=== PATIENT | female | born 1975 | race Caucasian/White ===

== ENCOUNTER → 2017-07-31 | Outpatient (CLI) | payer BC ==
--- NOTE | 2017-08-01 11:15 | WOMENS IMAGING REPORT ---
EXAM DESCRIPTION: 3D SCREENING MAMMO BILAT COMPLETED DATE/TIME: 07/31/2017 7:37 am REASON FOR STUDY: SCREENING MAMMO Z12.31 ENCNTR SCREEN MAMMOGRAM FOR MALIGNANT NEOPLASM OF MARY COMPARISON: None. TECHNIQUE: Standard craniocaudal and mediolateral oblique views of each breast recorded using digita l acquisition and breast tomosynthesis. LIMITATIONS: None. FINDINGS: No masses, calcifications or architectural distortion. No areas of suspicion. Read with the assistance of CAD. .[facility] - R2 Cenova Version 1.3 .[facility] Imaging - R2 Cenova Version 1.3 .[facility] - R2 Cenova Version 2.4 .[facility] [place] - R2 Cenova Version 2.4 .[facility] - R2 Photogrammetric Stereo Compiler Version 9.2 IMPRESSION: NORMAL MAMMOGRAM. BIRADS 1. BREAST DENSITY: c. The breasts are heterogeneously dense, which may obscure small masses. BIRAD: 1 NEGATIVE RECOMMENDATION: ROUTINE SCREENING COMMENT: The patient has been notified of the results by letter per SA requirements. Additional no tification policies are in place for contacting patient with suspicious or incomplete findings. Quality ID #[id number]: The [employer] recommends an annual screening mammogram for women aged 40 years or over. This facility utilizes a reminder system to ensure that all patients receive reminder letters, and/or direct phone calls for appointments. This includes reminders for routine scr eening mammograms, diagnostic mammograms, or other Breast Imaging Interventions when appropriate. Th is patient will be placed in the appropriate reminder system. The [employer] (ACR) has developed recommendations for screening MRI of the breast s in certain patient populations, to be used in conjunction with mammography. Breast MRI surveillanc e may be appropriate for women with more than 20% lifetime risk of developing breast cancer as deter mined by genetic testing, significant family history of the disease, or history of mantle radiation f or Hodgkins Disease. ACR Practice Guidelines 2008. DBT Technology DBT is a type of tomographic mammography. With conventional mammography, overlapping breast tissue ma y make lesions difficult to detect, even with good compression. DBT uses an x-ray tube that rotates a round the breast, taking images at different angles. These images are then combined to create thin sl ices of the breast that the radiologist can view as a 3D reconstruction. The AddonTV unit can perform full-field digital mammograms (2D imaging); or DBT (3D imaging); or both, in a combination mode that quickly performs both the mammogram and the tomosynthesis scan while the breast is still compressed. PQRS 6045F: Fluoroscopic imaging is not utilized for breast tomosynthesis. TECHNICAL DOCUMENTATION: FINDING NUMBER: (1) ASSESSMENT: (1) JOB ID: [id number] [employer]- All Rights Reserved
== END ==
LOC: WI 07:10
PROVIDERS: ATTEND Nurse Practitioner
DX: Z12.31 Encounter for screening mammogram for malignant neoplasm of breast (principal)
CPT/HCPCS: 77063; G0202; 77067

== ENCOUNTER → 2018-09-01 | Outpatient (CLI) | payer BC ==
--- NOTE | 2018-09-01 12:21 | WOMENS IMAGING REPORT ---
EXAM DESCRIPTION: BILAT SCREENING MAMMO W/CAD COMPLETED DATE/TIME: 09/01/2018 11:36 am REASON FOR STUDY: ROUTINE BILATERAL SCREENING,Z12.31 Z12.31 ENCNTR SCREEN MAMMOGRAM FOR MALIGNANT N EOPLASM OF MARY COMPARISON: 2017 TECHNIQUE: Standard craniocaudal and mediolateral oblique views of each breast recorded using [employer] l acquisition. LIMITATIONS: None. FINDINGS: No masses, calcifications or architectural distortion. No areas of suspicion. Read with the assistance of CAD. .[facility] - R2 Cenova Version 1.3 .[facility] Imaging - R2 Cenova Version 2.1 .[facility] Imaging - R2 Cenova Version 2.4 .[facility] [place] R2 Cenova Version 2.4 .[facility] - R2 Hoeing Row Boss Version 9.2 IMPRESSION: NORMAL MAMMOGRAM. BIRADS 1. BREAST DENSITY: b. There are scattered areas of fibroglandular density. BIRAD: 1 NEGATIVE RECOMMENDATION: ROUTINE SCREENING COMMENT: The patient has been notified of the results by letter per SA requirements. Additional no tification policies are in place for contacting patient with suspicious or incomplete findings. Quality ID #[id number]: The [employer] recommends an annual screening mammogram for women aged 40 years or over. This facility utilizes a reminder system to ensure that all patients receive reminder letters, and/or direct phone calls for appointments. This includes reminders for routine scr eening mammograms, diagnostic mammograms, or other Breast Imaging Interventions when appropriate. Th is patient will be placed in the appropriate reminder system. The [employer] (ACR) has developed recommendations for screening MRI of the breast s in certain patient populations, to be used in conjunction with mammography. Breast MRI surveillanc e may be appropriate for women with more than 20% lifetime risk of developing breast cancer as deter mined by genetic testing, significant family history of the disease, or history of mantle radiation f or Hodgkins Disease. ACR Practice Guidelines 2008. TECHNICAL DOCUMENTATION: FINDING NUMBER: (1) ASSESSMENT: (1) JOB ID: [id number] [employer]- All Rights Reserved Reading location - IP/workstation name: [email or web address]
== END ==
LOC: WI 11:14
PROVIDERS: ATTEND Nurse Practitioner
DX: Z12.31 Encounter for screening mammogram for malignant neoplasm of breast (principal)
CPT/HCPCS: 77067

== ENCOUNTER 2018-12-01 13:54 | Emergency (ER) | payer BC ==
[2018-12-01] MEDS ORDERED: ACETAMINOPHEN 325 MG TABLET PO ONE (14:19)
[2018-12-01] MEDS ORDERED: ONDANSETRON 4 MG TAB.RAPDIS PO ONE (14:19)
--- NOTE | 2018-12-01 14:22 | ER Document Report ---
ED Medical Screen (RME) - General Chief Complaint: Chest Pain Stated Complaint: CHEST PAIN Time Seen by Provider: 12/01/18 14:19 Primary Care Provider: HENNA SAAVEDRA NP [Primary Care Provider] - Follow up as needed Mode of Arrival: Ambulatory Information source: Patient Notes: 43-year-old female presented to ED for complaint of chest pain on and off for 3 weeks that starts in her left arm goes down her arm up her head and then has chest pain. She states it always goes in the same past. Patient states she has a history of lupus IBS and bipolar. She has had her gallbladder out and a C- section. She does smoke a pack a day drinks weekly and does not do any type of recreational drugs. 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 She is alert oriented respirations regular and unlabored lung sounds clear to auscultation. Patient is no acute distress at this time. I have greeted and performed a rapid initial assessment of this patient. A comprehensive ED assessment and evaluation of the patient, analysis of test results and completion of medical decision making process will be conducted by an additional ED providers. TRAVEL OUTSIDE OF THE [place] IN LAST 30 DAYS: No - Related Data Allergies/Adverse Reactions: No Known Allergies Allergy (Unverified 12/01/18 14:01) Past Medical History - Social History Frequency of alcohol use: Occasional Drug Abuse: None Renal/ Medical History: Denies: Hx Peritoneal Dialysis Psychiatric Medical History: Reports: Hx Bipolar Disorder Past Surgical History: Reports: Hx Section - x2, Hx Cholecystectomy, Hx Tubal Ligation Physical Exam - Vital signs Vitals: Temp Pulse Resp BP Pulse Ox 98.1 F 104 H 16 162/93 H 95 12/01/18 14:12 12/01/18 14:12 12/01/18 14:12 12/01/18 14:12 12/01/18 14:12 Course - Vital Signs Vital signs: Temp Pulse Resp BP Pulse Ox 98.1 F 104 H 16 162/93 H 95 12/01/18 14:12 12/01/18 14:12 12/01/18 14:12 12/01/18 14:12 12/01/18 14:12 Doctor's Discharge - Discharge Referrals: HENNA SAAVEDRA NP [Primary Care Provider] - Follow up as needed
[2018-12-01 15:00] LABS: ABSOLUTE BASOPHILS # (AUTO) 0.1 10^3/uL (0.0-0.2); ABSOLUTE EOSINOPHILS # (AUTO) 0.2 10^3/uL (0.0-0.6); ABSOLUTE LYMPHOCYTES (AUTO) 2.3 10^3/uL (0.5-4.7); ABSOLUTE NEUT (AUTO) 9.3 10^3/uL (1.7-8.2); BASOPHILS % (AUTO) 1.1 % (0-2); EOSINOPHILS % (AUTO) 1.2 % (0-6); HEMATOCRIT 35.9 % (36.0-47.0); HEMOGLOBIN 11.7 g/dL (12.0-15.5); LYMPHOCYTES % (AUTO) 17.8 % (13-45); MEAN CORPUSCULAR HEMOGLOBIN 27.3 pg (27.0-33.4); MEAN CORPUSCULAR HGB CONC 32.5 g/dL (32.0-36.0); MEAN CORPUSCULAR VOLUME 84 fl (80-97); MONOCYTES % (AUTO) 7.9 % (3-13); PLATELET COUNT 368 10^3/uL (150-450); RED BLOOD COUNT 4.27 10^6/uL (3.72-5.28); RED CELL DISTRIBUTION WIDTH 17.2 % (11.5-14.0); TOTAL CELLS COUNTED % (AUTO) 100 %; WHITE BLOOD COUNT 12.9 10^3/uL (4.0-10.5)
--- NOTE | 2018-12-01 15:18 | RADIOLOGY REPORT (SQ) ---
EXAM DESCRIPTION: CHEST 2 VIEWS COMPLETED DATE/TIME: 12/01/2018 3:01 pm REASON FOR STUDY: right chest pain x 3 weeks COMPARISON: None. EXAM PARAMETERS: NUMBER OF VIEWS: two views TECHNIQUE: Digital Frontal and Lateral radiographic views of the chest acquired. RADIATION DOSE: NA LIMITATIONS: none FINDINGS: LUNGS AND PLEURA: No opacities, masses or pneumothorax. No pleural effusion. MEDIASTINUM AND HILAR STRUCTURES: No masses or contour abnormalities. HEART AND VASCULAR STRUCTURES: Heart normal size. No evidence for failure. BONES: No acute findings. HARDWARE: None in the chest. OTHER: No other significant finding. IMPRESSION: NO ACUTE RADIOGRAPHIC FINDING IN THE CHEST. TECHNICAL DOCUMENTATION: JOB ID: [id number] [employer]- All Rights Reserved Reading location - IP/workstation name: [email or web address]
[2018-12-01 15:24] LABS: ALANINE AMINOTRANSFERASE 26 U/L (9-52); ALBUMIN 3.9 g/dL (3.5-5.0); ALKALINE PHOSPHATASE 113 U/L (38-126); ANION GAP 12 (5-19); ASPARTATE AMINO TRANSFERASE 32 U/L (14-36); BILIRUBIN,DIRECT 0.3 mg/dL (0.0-0.4); BILIRUBIN,TOTAL 0.4 mg/dL (0.2-1.3); BLOOD UREA NITROGEN 13 mg/dL (7-20); CALCIUM 9.6 mg/dL (8.4-10.2); CARBON DIOXIDE 28 mmol/L (22-30); CHLORIDE 101 mmol/L (98-107); GLUCOSE 114 mg/dL (75-110); LIPASE 44.7 U/L (23-300); POTASSIUM 4.3 mmol/L (3.6-5.0); SODIUM 141.2 mmol/L (137-145); TOTAL PROTEIN 8.2 g/dL (6.3-8.2)
[2018-12-01 15:35] LABS: CREATINE KINASE MB 2.04 ng/mL (<4.55)
[2018-12-01 15:40] LABS: TROPONIN I 0.096 ng/mL
--- NOTE | 2018-12-01 16:11 | EKG REPORT ---
SEVERITY:- ABNORMAL ECG - SINUS RHYTHM LEFT AXIS DEVIATION LEFT VENTRICULAR HYPERTROPHY : Confirmed by: Shonda Langley MD 01-Dec-2018 16:10:55
--- NOTE | 2018-12-01 17:43 | RADIOLOGY REPORT (SQ) ---
EXAM DESCRIPTION: CT HEAD WITHOUT COMPLETED DATE/TIME: 12/01/2018 5:32 pm REASON FOR STUDY: seizure like activity COMPARISON: None. TECHNIQUE: Axial images acquired through the brain without intravenous contrast. Images reviewed wi th bone, brain and subdural windows. Additional sagittal and coronal reconstructions were generated. Images stored on PACS. All CT scanners at this facility use dose modulation, iterative reconstruction, and/or weight based d osing when appropriate to reduce radiation dose to as low as reasonably achievable (ALARA). [facility]: Dose Right [facility]: CareDose [facility]: Dose Right [facility]: Teradose 4D [facility]: Smart [employer] RADIATION DOSE: CT Rad equipment meets quality standard of care and radiation dose reduction techniq ues were employed. CTDIvol: 53.2 mGy. DLP: 1017 mGy-cm. mGy. LIMITATIONS: None. FINDINGS: VENTRICLES: Normal size and contour. CEREBRUM: No masses. No hemorrhage. No midline shift. No evidence for acute infarction. Normal gra y/white matter differentiation. No areas of low density in the white matter. CEREBELLUM: No masses. No hemorrhage. No alteration of density. No evidence for acute infarction. EXTRAAXIAL SPACES: No fluid collections. No masses. ORBITS AND GLOBE: No intra- or extraconal masses. Normal contour of globe without masses. CALVARIUM: No fracture. PARANASAL SINUSES: No fluid or mucosal thickening. SOFT TISSUES: No mass or hematoma. OTHER: No other significant finding. IMPRESSION: NORMAL BRAIN CT WITHOUT CONTRAST. EVIDENCE OF ACUTE STROKE: NO. COMMENT: Quality ID # [id number]: Final reports with documentation of one or more dose reduction techniques (e.g., Automated exposure control, adjustment of the mA and/or kV according to patient size, use of iterative reconstruction technique) TECHNICAL DOCUMENTATION: JOB ID: [id number] [employer]- All Rights Reserved Reading location - IP/workstation name: [email or web address]
--- NOTE | 2018-12-01 17:43 | ER Document Report ---
ED General - General Chief Complaint: Chest Pain Stated Complaint: CHEST PAIN Time Seen by Provider: 12/01/18 14:19 Primary Care Provider: HENNA SAAVEDRA NP [Primary Care Provider] - Follow up as needed Mode of Arrival: Ambulatory Information source: Patient, [facility] Records Notes: Patient is a well-appearing 43-year-old female with history of lupus, restless leg syndrome, and bipolar disorder. Patient presents with 3-week history of right arm pain that radiates up to her neck and down her right arm. She describes it as episodes of numbness and tingling that can last anywhere from 5 to 30 minutes. During these episodes she also develops a strong right sided he adache. Her pain not provoked or elicited with exertion. Patient initially thought her symptoms were due to heartburn and took Tums however it did not relieve her symptoms. Patient reports over the past few weeks the episodes have been increasing, she now describes the episodes are occurring at least 3-4 times per day. Patient denies any recent illness but does report she recently started new medication for her restless leg syndrome including Requip and gabapentin. She noticed her symptoms began about 2 weeks after she began taking the medication. She has never felt this type of pain before. Family history significant for mother with VT in her 60s. Patient denies fever, chills, weight loss, shortness of breath, cough, chest pressure, arm weakness, paralysis, confusion, double vision, abdominal pain, dysuria. TRAVEL OUTSIDE OF THE [place] IN LAST 30 DAYS: No - HPI Onset: Other Onset/Duration: Waxing and waning Quality of pain: Pressure, Throbbing Severity: Moderate Associated symptoms: Chest pain, Headache. denies: Chills, Nonproductive cough, Diarrhea, Fever, Nausea, Vomiting Exacerbated by: Denies Relieved by: Denies Similar symptoms previously: No Recently seen / treated by doctor: No - Related Data Allergies/Adverse Reactions: No Known Allergies Allergy (Unverified 12/01/18 14:01) Past Medical History - General Information source: Patient - Social History Smoking Status: Current Every Day Smoker Cigarette use (# per day): Yes - 10 Smoking Education Provided: Yes - Smoking cessation counseling was provided for 4 minutes at the bedside Frequency of alcohol use: Occasional Drug Abuse: None Lives with: Family Family History: Reviewed & Not Pertinent Patient has suicidal ideation: No Patient has homicidal ideation: No - Medical History Medical History: Other - Lupus Renal/ Medical History: Denies: Hx Peritoneal Dialysis Psychiatric Medical History: Reports: Hx Bipolar Disorder Past Surgical History: Reports: Hx Section - x2, Hx Cholecystectomy, Hx Tubal Ligation Review of Systems - Review of Systems Constitutional: denies: Chills, Diaphoresis, Fever, Malaise, Weakness EENT: denies: Blurred vision, Nose congestion, Difficulty swallowing Cardiovascular: Chest pain. denies: Palpitations, Dyspnea, Dizziness Respiratory: denies: Cough, Short of breath, Sputum Gastrointestinal: denies: Abdominal pain, Diarrhea, Nausea, Vomiting Genitourinary: denies: Burning, Dysuria, Discharge Neurological/Psychological: Headaches. denies: Confusion, Dementia, Weakness, Lost consciousness Physical Exam - Vital signs Vitals: Temp Pulse Resp BP Pulse Ox 98.1 F 104 H 16 162/93 H 95 12/01/18 14:12 12/01/18 14:12 12/01/18 14:12 12/01/18 14:12 12/01/18 14:12 - Notes Notes: PHYSICAL EXAMINATION: GENERAL: Well-appearing, well-nourished and in no acute distress. HEAD: Atraumatic, normocephalic. EYES: Pupils equal round and reactive to light, extraocular movements intact, conjunctiva are normal. ENT: Nares patent, oropharynx clear without exudates. Moist mucous membranes. NECK: Normal range of motion, supple without lymphadenopathy LUNGS: Breath sounds clear to auscultation bilaterally and equal. No wheezes rales or rhonchi. HEART: Regular rate and rhythm without murmurs ABDOMEN: Soft, nontender, nondistended abdomen. No guarding, no rebound. No masses appreciated. Female : deferred Musculoskeletal: Normal range of motion, no pitting or edema. No cyanosis. NEUROLOGICAL: Cranial nerves grossly intact. Normal speech, normal gait. Normal sensory, motor exams PSYCH: Normal mood, normal affect. SKIN: Warm, Dry, normal turgor, no rashes or lesions noted. Course - Re-evaluation Re-evalutation: Chest X-Ray 12/01/18 14:20 IMPRESSION: NO ACUTE RADIOGRAPHIC FINDING IN THE CHEST. Head CT 12/01/18 17:22 IMPRESSION: NORMAL BRAIN CT WITHOUT CONTRAST. EVIDENCE OF ACUTE STROKE: NO. Laboratory 12/01/18 12/01/18 12/01/18 14:43 14:43 14:43 WBC 12.9 H RBC 4.27 Hgb 11.7 L Hct 35.9 L MCV 84 MCH 27.3 MCHC 32.5 RDW 17.2 H Plt Count 368 Seg Neutrophils % 72.0 Lymphocytes % 17.8 Monocytes % 7.9 Eosinophils % 1.2 Basophils % 1.1 Absolute Neutrophils 9.3 H Absolute Lymphocytes 2.3 Absolute Monocytes 1.0 Absolute Eosinophils 0.2 Absolute Basophils 0.1 Sodium 141.2 Potassium 4.3 Chloride 101 Carbon Dioxide 28 Anion Gap 12 BUN 13 Creatinine 0.83 Est GFR ( Amer) > 60 Est GFR (Non-Af Amer) > 60 Glucose 114 H Calcium 9.6 Total Bilirubin 0.4 Direct Bilirubin 0.3 Neonat Total Bilirubin Not Reportable Neonat Direct Bilirubin Not Reportable Neonat Indirect Bili Not Reportable AST 32 ALT 26 Alkaline Phosphatase 113 CK-MB (CK-2) 2.04 Troponin I 0.096 Total Protein 8.2 Albumin 3.9 Lipase 44.7 Beta HCG, Quant < 2.39 Total Beta HCG NEGATIVE 12/01/18 17:40 WBC RBC Hgb Hct MCV MCH MCHC RDW Plt Count Seg Neutrophils % Lymphocytes % Monocytes % Eosinophils % Basophils % Absolute Neutrophils Absolute Lymphocytes Absolute Monocytes Absolute Eosinophils Absolute Basophils Sodium Potassium Chloride Carbon Dioxide Anion Gap BUN Creatinine Est GFR ( Amer) Est GFR (Non-Af Amer) Glucose Calcium Total Bilirubin Direct Bilirubin Neonat Total Bilirubin Neonat Direct Bilirubin Neonat Indirect Bili AST ALT Alkaline Phosphatase CK-MB (CK-2) Troponin I 0.149 Total Protein Albumin Lipase Beta HCG, Quant Total Beta HCG 12/01/18 19:03 Initial troponin indeterminate, repeat troponin now positive. Patient will be administered Lovenox. She did receive aspirin at 230. Will contact her hospitalist to see if she is appropriate for admission here. 12/01/18 20:[address] Barrios regarding admission for this patient and since she is having active chest pain and will likely need intervention he feels that transfer is in the patient's best interest. I have contacted [facility] for transfer. 12/01/18 20:57 Patient agreeable with transfer to [facility] as her primary care physician is associated with this hospital. Patient's repeat troponin is now higher at 0.149. Patient did receive sublingual nitroglycerin, IV fentanyl. On reevaluation pain has resolved. Third troponin was obtained and 0.148. 12/01/18 22:[address] Kareem Nowak at [facility]. Patient was made aware that there will be a delay in transfer and still wants to go to [place]. - Vital Signs Vital signs: Temp Pulse Resp BP Pulse Ox 98.1 F 104 H 14 158/99 H 97 12/01/18 14:12 12/01/18 14:12 12/01/18 18:58 12/01/18 18:58 12/01/18 18:58 - Laboratory Result Diagrams: 12/01/18 14:43 12/01/18 14:43 Laboratory results interpreted by me: 12/01/18 12/01/18 14:43 14:43 WBC 12.9 H Hgb 11.7 L Hct 35.9 L RDW 17.2 H Absolute Neutrophils 9.3 H Glucose 114 H - Diagnostic Test Radiology reviewed: Image reviewed, Reports reviewed - EKG Interpretation by Me EKG shows normal: Sinus rhythm Rate: Normal Rhythm: NSR When compared to previous EKG there are: No significant change - Repeat EKG shows normal sinus rhythm Discharge - Discharge Clinical Impression: NSTEMI (non-ST elevated myocardial infarction), Tobacco use, History of lupus Chest pain Qualifiers: Chest pain type: unspecified Qualified Code(s): R07.9 - Chest pain, unspecified Hypertension Qualifiers: Hypertension type: unspecified Qualified Code(s): I10 - Essential (primary) hypertension Condition: Good Disposition: [facility] Referrals: HENNA SAAVEDRA NP [Primary Care Provider] - Follow up as needed
[2018-12-01] MEDS ORDERED: NITROGLYCERIN 0.4 MG/TAB 25 TAB/BOTTLE ONE (19:06)
[2018-12-01] MEDS: NITROGLYCERIN 0.4 MG/TAB 25 TAB/BOTTLE SL PRN ×2 (19:07→19:44)
[2018-12-01] MEDS: ENOXAPARIN SODIUM INJ 100 MG/1 ML DISP.SYRIN SUBCUT SCH ×2 (19:41→21:53)
[2018-12-01] MEDS ORDERED: FENTANYL CITRATE INJ/PF 100 MCG/2 ML AMPUL IV ONE (19:51)
[2018-12-01] MEDS ORDERED: NORMAL SALINE 1000 ML 1,000 ML IV ONE (19:51)
--- NOTE | 2018-12-01 20:42 | EKG REPORT ---
SEVERITY:- ABNORMAL ECG - SINUS RHYTHM LEFT ANTERIOR FASCICULAR BLOCK LEFT VENTRICULAR HYPERTROPHY : Confirmed by: Shonda Langley MD 01-Dec-2018 20:42:03
--- NOTE | 2018-12-01 20:42 | EKG REPORT ---
SEVERITY:- BORDERLINE ECG - SINUS RHYTHM LVH BY VOLTAGE : Confirmed by: Shonda Langley MD 01-Dec-2018 20:41:59
[2018-12-01] MEDS ORDERED: MORPHINE SULFATE 10 MG/ML INJ IV PRN (20:59)
[2018-12-01] MEDS ORDERED: ONDANSETRON HCL INJ/PF 4 MG/2 ML SDV IV PRN (20:59)
[2018-12-01] MEDS ORDERED: NITROGLYCERIN 0.4 MG/TAB 25 TAB/BOTTLE SL PRN (21:00)
[2018-12-01] MEDS ORDERED: NICOTINE 14 MG/24 HR PATCH.TD24 TD ONE (21:04)
[2018-12-02 07:28] LABS: ABSOLUTE BASOPHILS # (AUTO) 0.1 10^3/uL (0.0-0.2); ABSOLUTE EOSINOPHILS # (AUTO) 0.1 10^3/uL (0.0-0.6); ABSOLUTE LYMPHOCYTES (AUTO) 1.7 10^3/uL (0.5-4.7); ABSOLUTE MONOCYTES (AUTO) 0.6 10^3/uL (0.1-1.4); ABSOLUTE NEUT (AUTO) 5.5 10^3/uL (1.7-8.2); BASOPHILS % (AUTO) 0.7 % (0-2); EOSINOPHILS % (AUTO) 1.4 % (0-6); HEMATOCRIT 32.2 % (36.0-47.0); HEMOGLOBIN 10.3 g/dL (12.0-15.5); MEAN CORPUSCULAR HEMOGLOBIN 26.9 pg (27.0-33.4); MEAN CORPUSCULAR VOLUME 84 fl (80-97); MONOCYTES % (AUTO) 7.7 % (3-13); PLATELET COUNT 302 10^3/uL (150-450); RED BLOOD COUNT 3.83 10^6/uL (3.72-5.28); RED CELL DISTRIBUTION WIDTH 17.2 % (11.5-14.0); SEGMENTED NEUTROPHILS % (AUTO) 69.2 % (42-78); TOTAL CELLS COUNTED % (AUTO) 100 %
[2018-12-02 08:28] LABS: APPEARANCE,URINE CLOUDY; BILIRUBIN,URINE NEGATIVE (NEGATIVE); COLOR,URINE YELLOW; GLUCOSE, URINE NEGATIVE (NEGATIVE); KETONES,URINE NEGATIVE (NEGATIVE); LEUKOCYTE ESTERASE,URINE NEGATIVE (NEGATIVE); NITRITE,URINE NEGATIVE (NEGATIVE); PROTEIN,URINE NEGATIVE (NEGATIVE); URINE SPECIFIC GRAVITY 1.016; UROBILINOGEN,URINE NEGATIVE mg/dL (<2.0)
[2018-12-02] MEDS ORDERED: NITROGLYCERIN 0.4 MG/TAB 25 TAB/BOTTLE SL PRN (08:45)
[2018-12-02 08:50] LABS: ANION GAP 7 (5-19); BLOOD UREA NITROGEN 10 mg/dL (7-20); CALCIUM 8.9 mg/dL (8.4-10.2); CARBON DIOXIDE 27 mmol/L (22-30); CHLORIDE 105 mmol/L (98-107); GLUCOSE 97 mg/dL (75-110); POTASSIUM 4.4 mmol/L (3.6-5.0); SODIUM 139.3 mmol/L (137-145)
[2018-12-02] MEDS: ENOXAPARIN SODIUM INJ 100 MG/1 ML DISP.SYRIN SUBCUT SCH ×2 (09:27→22:37)
--- NOTE | 2018-12-02 16:06 | ER Document Report ---
Doctor's Note Notes: 12/02/18 16:05 I checked in on the patient and she states that she is having no pain and feels well. She did have some chest pain just before 9 AM this morning and received sublingual nitroglycerin. She states the nitroglycerin gave her prompt relief and she has not had any pain since that time. We are still waiting on bed assignment at [facility].
--- NOTE | 2018-12-02 17:44 | EKG REPORT ---
SEVERITY:- ABNORMAL ECG - SINUS RHYTHM LEFT AXIS DEVIATION LEFT VENTRICULAR HYPERTROPHY : Confirmed by: Shonda Langley MD 02-Dec-2018 17:43:06
[2018-12-03 02:15] VITALS: BP 112/83
--- NOTE | 2018-12-03 04:06 | ER Document Report ---
Doctor's Note Notes: 12/03/18 04:05 Patient was being maintained here in the emergency department, awaiting transfer to [facility] for NSTEMI. Patient was stable throughout the course of her stay. I did reevaluate her while transport was present. She had no complaints. She remained chest pain-free. Vital signs are stable. The patient is stable for transport.
== END 2018-12-03 03:57 | disposition short-term general hospital (02) ==
LOC: ER 13:54
DX: I21.4 Non-ST elevation (NSTEMI) myocardial infarction (principal); M79.601 Pain in right arm; R20.0 Anesthesia of skin; R20.2 Paresthesia of skin; R51 Headache; I10 Essential (primary) hypertension; G25.81 Restless legs syndrome; F17.210 Nicotine dependence, cigarettes, uncomplicated; Z71.6 Tobacco abuse counseling; Z82.49 Family history of ischemic heart disease and other diseases of the circulatory system
CPT/HCPCS: 93005 ×2; 99285; 96372; 96361; 96374; 36415; 82553; 84702; 83690; 85025; 80048; 80053; 81001; 84484; 71046; 70450; 93010 ×2; S0119; J3010; J7030; J1650 ×2

== ENCOUNTER → 2019-09-16 | Outpatient (CLI) | payer BC ==
--- NOTE | 2019-09-17 19:26 | WOMENS IMAGING REPORT ---
EXAM DESCRIPTION: BILAT SCREENING MAMMO W/CAD COMPLETED DATE/TIME: 09/16/2019 10:35 am REASON FOR STUDY: Z12.31 SCREENING MAMMO Z12.31 ENCNTR SCREEN MAMMOGRAM FOR MALIGNANT NEOPLASM OF B RE COMPARISON: 09/01/2018, 07/31/2017 EXAM PARAMETERS: Standard craniocaudal and mediolateral oblique views of each breast recorded using digital acquisition. Read with the assistance of CAD. .[facility] - [employer] Leveling Machine Operator Version 9.2 LIMITATIONS: None. FINDINGS: No suspicious masses, suspicious calcifications or architectural distortion. No areas of c oncern. IMPRESSION: Negative MAMMOGRAM. BIRADS 1 BREAST DENSITY: b. There are scattered areas of fibroglandular density. BIRAD: ASSESSMENT: 1 NEGATIVE RECOMMENDATION: ROUTINE SCREENING COMMENT: The patient has been notified of the results by letter per MQSA requirements. Additional no tification policies are in place for contacting patient with suspicious or incomplete findings. Quality ID #[id number]: The [employer] recommends an annual screening mammogram for women aged 40 years or over. This facility utilizes a reminder system to ensure that all patients receive reminder letters, and/or direct phone calls for appointments. This includes reminders for routine scr eening mammograms, diagnostic mammograms, or other Breast Imaging Interventions when appropriate. Th is patient will be placed in the appropriate reminder system. TECHNICAL DOCUMENTATION: FINDING NUMBER: (1) ASSESSMENT: (1) JOB ID: [id number] [employer]- All Rights Reserved Reading location - IP/workstation name: [email or web address]
== END ==
LOC: WI 11:05
PROVIDERS: ATTEND Nurse Practitioner
DX: Z12.31 Encounter for screening mammogram for malignant neoplasm of breast (principal)
CPT/HCPCS: 77067

== ENCOUNTER 2020-02-12 06:47 | Day surgery (SDC) | payer BC ==
[2020-02-12] MEDS ORDERED: PROPOFOL INJ 200 MG/20 ML VIAL IV ONE (07:29)
--- NOTE | 2020-02-12 09:14 | Operative Report ---
Operative Report DATE OF SURGERY: 02/12/20 Operative Report: The risk, benefits and alternatives of the procedure including the risks of bleeding, perforation requiring surgery have been explained to the patient in detail and informed consent has been obtained. The patient is placed in a left, lateral decubital position. Timeout was called. Propofol medication is administered. A rectal examination is done which did not reveal any masses, tears or fissures. An Olympus videoscope is inserted into the patient's rectum. Scope was then carefully advanced all the way to the cecum. The cecum was identified by the usual anatomical landmarks including the ileocecal valve as well as the appendiceal office. Photodocumentation is obtained. Scope was then sequentially pulled back via the various segments of the colon including the ascending colon, hepatic flexure, transverse colon, splenic flexure, descending colon and finally into the rectosigmoid portions of the colon. Retroflexion maneuver is performed. PREOPERATIVE DIAGNOSIS: Change in bowel habits personal history of polyp POSTOPERATIVE DIAGNOSIS: Right-sided colon inflammation status post biopsy. Sigmoid colon polyp status post biopsy. Internal hemorrhoids OPERATION: Colonoscopy with biopsy SURGEON: KURT MATOS ANESTHESIA: LMAC TISSUE REMOVED OR ALTERED: As noted above. COMPLICATIONS: None. ESTIMATED BLOOD LOSS: None. INTRAOPERATIVE FINDINGS: As noted above. PROCEDURE: Patient tolerated the procedure well. No immediate postprocedure complications are noted. Patient is discharged in good condition. Discharge date 02/12/2020. Discharge diet: Regular. Discharge activity: Regular. 2 to 3-week follow-up to discuss findings. Patient is instructed to call the office or proceed to the emergency room should there be any further problems or questions. Wait on the pathology. 5-year surveillance colonoscopy.
[2020-02-12 09:48] VITALS: BP 108/58
== END 2020-02-12 09:47 | disposition home or self-care (01) ==
LOC: END 06:47
PROVIDERS: ATTEND Internal Medicine Gastroenterology
DX: K52.9 Noninfective gastroenteritis and colitis, unspecified (principal); K64.8 Other hemorrhoids; Z86.010 Personal history of colon polyps; F17.210 Nicotine dependence, cigarettes, uncomplicated; D64.9 Anemia, unspecified; M32.9 Systemic lupus erythematosus, unspecified
CPT/HCPCS: 45380; 87635; 88305 ×2; J2704; C9803; 811

== ENCOUNTER → 2020-07-15 | Outpatient (CLI) | payer BC ==
[2020-07-15 12:35] LABS: ALBUMIN 3.8 g/dL (3.5-5.0); ALKALINE PHOSPHATASE 81 U/L (38-126); ASPARTATE AMINO TRANSFERASE 27 U/L (14-36); BILIRUBIN,DIRECT 0.3 mg/dL (0.0-0.4); BILIRUBIN,TOTAL 0.4 mg/dL (0.2-1.3); TOTAL PROTEIN 7.2 g/dL (6.3-8.2)
[2020-07-15 12:40] LABS: C-REACTIVE PROTEIN < 5.0 mg/L (<10.0)
[2020-07-16 07:38] LABS: HEPATITS B SURFACE ANTIGEN Negative (Negative)
[2020-07-16 16:06] LABS: HEPATITIS C VIRUS ANTIBODY <0.1 s/co ratio (0.0-0.9)
== END ==
LOC: OD 10:51
PROVIDERS: ATTEND Internal Medicine Gastroenterology
DX: K52.9 Noninfective gastroenteritis and colitis, unspecified (principal); K63.5 Polyp of colon; K92.1 Melena; R19.4 Change in bowel habit
CPT/HCPCS: 36415; 80074; 80076; 85652; 86140; 86480